=== PATIENT | female | born 1945 | race Caucasian/White ===

== ENCOUNTER → 2017-06-27 09:13 | Outpatient (CLI) | payer MEDICARE, OTHER, SELFPAY ==
--- NOTE | 2017-06-27 09:20 | RAD_ITS ---
STUDY: X-RAY - LEFT HAND, ATTENTION FIRST FINGER REASON FOR EXAM: Female, 72 years old. Chronic thumb pain TECHNIQUE: 3 view(s) of the finger were obtained. COMPARISON: None. FINDINGS: The bones are osteopenic. There are mild arthritic changes of the first interphalangeal joint and first metacarpal greater multangular joint. There is no evidence of fracture or dislocation. The soft tissues are unremarkable. RAD/Finger(s) Min 2 Views IMPRESSION: Degenerative changes of the first interphalangeal joint and first metacarpal greater multangular joint. Generalized osteopenia. Electronically Signed: Ruben Peterson MD at 21:39 EST , Service support ,
== END ==
PROVIDERS: Family Provider Internal Medicine; PCP Internal Medicine; Visit Provider Internal Medicine
DX: M79.645 Pain in left finger(s) (principal)
CPT/HCPCS: 73140

== ENCOUNTER → 2017-09-12 07:22 | Outpatient (CLI) | payer MEDICARE, OTHER, SELFPAY ==
[2017-09-12 08:24] LABS: ALB/GLOB Ratio 1.2 RATIO (0.9-2.4); AST(SGOT) 18 U/L (15-37); Alanine Aminotransfer ALT/SGPT 26 U/L (13-56); Albumin, Serum 4.1 g/dL (3.2-5.0); Alkaline Phosphatase 44 U/L (45-117); Anion Gap 7 (5-15); BUN 26 mg/dL (7-18); Chloride 104 mmol/L (98-107); Creatinine, Serum 0.81 mg/dL (0.55-1.02); EST Glomerular Filtration Rate 74 mL/min (>60); Est Glom Filt Rate - Afr Amer 90 mL/min (>60); Globulin 3.4 g/dL (2.2-4.2); Glucose 88 mg/dL (74-106); Potassium 4.1 mmol/L (3.5-5.1); Protein, Total 7.5 g/dL (6.4-8.2); Sodium Level 140 mmol/L (136-145); Thyroid Stim Hormone (TSH) 1.55 uIU/mL (0.358-3.74)
== END ==
PROVIDERS: Family Provider Internal Medicine; PCP Internal Medicine; Visit Provider Internal Medicine Endocrinology, Diabetes & Metabolism
DX: E04.2 Nontoxic multinodular goiter (principal)
CPT/HCPCS: 36415; 80053; 84443

== ENCOUNTER → 2018-03-15 06:04 | Outpatient (CLI) | payer MEDICARE, OTHER, SELFPAY ==
[2018-03-15 07:31] LABS: AST(SGOT) 20 U/L (15-37); Alanine Aminotransfer ALT/SGPT 25 U/L (13-56); Albumin, Serum 3.8 g/dL (3.2-5.0); Alkaline Phosphatase 56 U/L (45-117); Anion Gap 4 (5-15); BUN 25 mg/dL (7-18); BUN/Creat Ratio 28.5 RATIO (10-20); Chloride 107 mmol/L (98-107); Creatinine, Serum 0.88 mg/dL (0.55-1.02); EST Glomerular Filtration Rate 68 mL/min (>60); Est Glom Filt Rate - Afr Amer 82 mL/min (>60); Globulin 3.8 g/dL (2.2-4.2); Glucose 86 mg/dL (74-106); Potassium 3.9 mmol/L (3.5-5.1); Protein, Total 7.6 g/dL (6.4-8.2); Sodium Level 141 mmol/L (136-145); Thyroid Stim Hormone (TSH) 2.43 uIU/mL (0.358-3.74)
[2018-03-15 08:14] LABS: Vitamin D,25 Hydroxy 56.4 ng/mL (29.95-100.01)
== END ==
PROVIDERS: Family Provider Internal Medicine; PCP Internal Medicine; Referring Provider Internal Medicine Endocrinology, Diabetes & Metabolism; Visit Provider Internal Medicine Endocrinology, Diabetes & Metabolism
DX: E04.2 Nontoxic multinodular goiter (principal); E55.9 Vitamin D deficiency, unspecified
CPT/HCPCS: 36415; 80053; 82306; 84443

== ENCOUNTER → 2018-08-29 05:53 | Outpatient (CLI) | payer MEDICARE, OTHER, SELFPAY ==
[2018-08-29 08:10] LABS: ALB/GLOB Ratio 1.1 RATIO (0.9-2.4); AST(SGOT) 21 U/L (15-37); Alanine Aminotransfer ALT/SGPT 26 U/L (13-56); Albumin, Serum 4.1 g/dL (3.2-5.0); Alkaline Phosphatase 52 U/L (45-117); Anion Gap 7 (5-15); BUN 21 mg/dL (7-18); BUN/Creat Ratio 22.3 RATIO (10-20); Calcium,Total 9.7 mg/dL (8.5-10.1); Chloride 105 mmol/L (98-107); Creatinine, Serum 0.94 mg/dL (0.55-1.02); EST Glomerular Filtration Rate 62 mL/min (>60); Est Glom Filt Rate - Afr Amer 75 mL/min (>60); Globulin 3.7 g/dL (2.2-4.2); Glucose 93 mg/dL (74-106); Potassium 4.1 mmol/L (3.5-5.1); Protein, Total 7.8 g/dL (6.4-8.2); Sodium Level 141 mmol/L (136-145)
== END ==
PROVIDERS: Family Provider Internal Medicine; PCP Internal Medicine; Referring Provider Internal Medicine Endocrinology, Diabetes & Metabolism; Visit Provider Internal Medicine Endocrinology, Diabetes & Metabolism
DX: E04.2 Nontoxic multinodular goiter (principal)
CPT/HCPCS: 36415; 80053; 84443

== ENCOUNTER → 2019-01-20 15:33 | Outpatient (CLI) | payer MEDICARE, OTHER, SELFPAY ==
--- NOTE | 2019-01-20 15:38 | RAD_ITS ---
STUDY: X-RAY - CERVICAL SPINE REASON FOR EXAM: Female, 73 years old. Left-sided neck pain radiating down shoulder TECHNIQUE: 5 view(s) of the cervical spine were obtained. COMPARISON: None FINDINGS: Normal alignment. Prevertebral soft tissues are normal. Degenerative disc disease at the C4-5, C5-6, and C6-7 levels. Mild bilateral foraminal stenosis at the C4-5 and C5-6 levels. Base of dens is intact. No fractures or osteolytic lesions. Carotid calcifications. RAD/Cerv Spine 4 or 5 Views IMPRESSION: Multilevel degenerative disease as described. Electronically Signed: Bryan Jones MD at 16:28 EDT Tel , Service support ,
== END ==
PROVIDERS: Family Provider Internal Medicine; PCP Internal Medicine; Referring Provider Chiropractor; Visit Provider Chiropractor
DX: M99.01 Segmental and somatic dysfunction of cervical region (principal); M50.320 Other cervical disc degeneration, mid-cervical region, unspecified level; M99.03 Segmental and somatic dysfunction of lumbar region; M51.36 Other intervertebral disc degeneration, lumbar region; M99.05 Segmental and somatic dysfunction of pelvic region; M51.37 Other intervertebral disc degeneration, lumbosacral region; M99.02 Segmental and somatic dysfunction of thoracic region
CPT/HCPCS: 72050

== ENCOUNTER 2019-01-24 07:00 | Outpatient (RCR) | payer MEDICARE, OTHER, SELFPAY ==
--- NOTE | 2019-01-15 10:07 | HP.PTEVAL ---
Patient's Visit Information JOSE M GUILLORY is a 73 year old F referred to Physical Therapy by Hope Palencia DO with a diagnosis of CERVICAL RADICULOPATHY,MUSCLE SPASMS. Date of Evaluation: 01/15/19 Physical Therapist: Mark Norris, PT, Cert MDT, OCS - Visit Plan Frequency: 2x /Week Duration: 3 Weeks Plan: PT INTERVENTIONS MANUAL THERAPY STM/CERVICL TRACTION,CERVICAL POSTURAL EX'S.MODALTIES - Subjective Findings: This 73 y/o female presenst to physical therapy cervical radiculopathy. Patient has had pain right UT which has been chronic . Patient had episodes of sprain cervical spine and twisting neck getting out of care. Patient sees chiropractor with TENS and traction. Patient denies parathesia/tingling . Denies nuasea/CHENG/ tinnutus. Patient able to sleep good . Pateint seen DR Palencia. Patient cervical pain affects housework tasks and ADLS . Patient condtion affects QOL. VOCATION: retired. SOCIAL: - Pain Left Neck Pain Intensity (Out of 10): 8 Pain Intensity Range: 10 - Objective POSTURE: mild foward posture. NEURO: intact denies reflexes C-5-6-7 2/3. PALAPTION: left UT ,levator left. AROM: WFL. CERVICAL ROM: flexion min loss ,extension min loss,lateral flexion/rotation mod loss,retraction min loss - Special Tests C/S Radiculapathy - Left Upper limb tension test: Negative C/S Radiculapathy - Right Upper limb tension test: Negative C/S Radiculapathy - Left Spurlings: Positive C/S Radiculapathy - Right Spurlings: Negative C/S Radiculapathy - Left Cervical distraction: Negative C/S Radiculapathy - Right Cervical distraction: Negative Sharp Jake: Negative Vertebral Artery Test: Negative Alar Ligament Test: Negative - Goals Goal 1:: Independant with HEP Goal Time Frame: 2-4 Weeks Goal 2:: Patient to decrease pain by 50% or greater to improve function with ADL'S Goal Time Frame: 2-4 Weeks Goal 3:: Patient to improve cervical ROM for function of recovery Goal Time Frame: 2-4 Weeks Goal 4:: Patient improve neck owestry score by 5 points > to improve QOL Goal Time Frame: 2-4 Weeks Goal 5:: Patient improve function with min limiations Goal Time Frame: 2-4 Weeks - Rehabilitation Potential Physical Therapy Diagnosis: This patient has cervical pain left side with muscle spasms with decrease ROM cervical spine,spasms impairs ADLS' and function with housework tasks. Rehabilitation Potential: Good - Anticipated Interventions Patient/Client Instruction: Educate patient on: Condition, Plan of Care For the Purpose of:: To decrease pain, To increase ROM, To improve ability to perform ADL's, To increase tolerance to activity/condition/position, To improve performance and independence with ADL's, To improve ability of physical actions for home/community/work/leisure, To improve health of tissue, To decrease soft tissue restriction, To increase flexibility/ROM, To improve ability to perform tasks related to life management Therapeutic Exercise to Include: Strength training, Postural training, Flexibilty training, Active ROM For the Purpose of:: To increase ROM, To improve muscle performance and motor function, To improve ability to perform ADL's, To increase tolerance to activity/condition/position, To improve ability of physical actions for home/community/work/leisure, To improve health of tissue, To decrease soft tissue restriction, To increase flexibility/ROM, To improve ability to perform tasks related to life management Manual Therapy Techniques to Include: Mobilization, Soft tissue mobilization For the Purpose of:: To decrease pain, To increase ROM, To improve nutrient delivery to tissue, To increase oxygenation perfusion, To improve health of tissue, To decrease soft tissue restriction TENS: Yes IF ES: Yes Cryotherapy (ice pack, ice massage): Yes Thermo therapy (hot pack): Yes Ultrasound (thermal/non thermal): Yes Intermittent cervical traction: Yes For the Purpose of:: To decrease pain, To increase ROM, To improve nutrient delivery to tissue, To increase oxygenation perfusion, To improve health of tissue, To decrease soft tissue restriction Thank you for the opportunity to evaluate your patient. For Medicare and Medicare HMO plans, please review the plan of care and approve it. It will need to be FAXED BACK to us at [phone] for Medicare purposes. For Medicare only, by signing this I certify the plan of care. Please let me know if there are questions or concerns regarding this plan of care. Physician Signature: Date:
--- NOTE | 2019-01-24 07:39 | HP.PTDCSUM ---
HP - PT D/C Summary It has been my pleasure to treat JOSE M GUILLORY under orders from Hope Palencia DO, for the diagnosis of CERVICAL RADICULOPATHY,MUSCLE SPASMS for a total of 5 visit(s). Discharge Date: 01/24/19 Please see the following information for a summary of their discharge status. - Subjective Subjective: Doing good.. No problems.. Doing ADL'S - Pain Left Neck Pain Intensity (Out of 10): 1 - Overall Improvement % Improvement: 90 - Objective Objective/Function: POSTURE: WFL. PALAPTION: levator scapular. AROM: WFL. MMT: 4/5. CERVICAL ROM: flexion min loss,lateral flexion/rotation mod/min loss,ext. mod loss - Goals Goal 1:: Independant with HEP Goal Progress: Goal Met Goal 2:: Patient to decrease pain by 50% or greater to improve function with ADL'S Goal Progress: Goal Met Goal 3:: Patient to improve cervical ROM for function of recovery Goal Progress: Goal Met Goal 4:: Patient improve neck owestry score by 5 points > to improve QOL Goal Progress: Goal Met Goal 5:: Patient improve function with min limiations Goal Progress: Goal Met - Plan Plan: d/c - D/C Information If there are questions or concerns regarding this patient's physical therapy, please feel free to call me at [phone]. Thank you for the referral of this patient. Sincerely, Mark Norris, PT, Cert MDT, OCS
== END 2019-01-24 19:00 | disposition home or self-care (01) ==
LOC: PT 07:00
PROVIDERS: Family Provider Internal Medicine; PCP Internal Medicine; Referring Provider Internal Medicine; Visit Provider Internal Medicine
DX: M54.12 Radiculopathy, cervical region (principal); M62.838 Other muscle spasm
CPT/HCPCS: 97035; 97116; 97140; 97162

== ENCOUNTER → 2019-04-15 06:01 | Outpatient (CLI) | payer MEDICARE, OTHER, SELFPAY ==
[2019-04-15 07:16] LABS: ALB/GLOB Ratio 1.1 RATIO (0.9-2.4); AST(SGOT) 22 U/L (15-37); Alanine Aminotransfer ALT/SGPT 30 U/L (13-56); Albumin, Serum 3.9 g/dL (3.2-5.0); Alkaline Phosphatase 50 U/L (45-117); Anion Gap 5 (5-15); BUN 22 mg/dL (7-18); BUN/Creat Ratio 23.2 RATIO (10-20); Calcium,Total 9.4 mg/dL (8.5-10.1); Chloride 105 mmol/L (98-107); Creatinine, Serum 0.95 mg/dL (0.55-1.02); EST Glomerular Filtration Rate 62 mL/min (>60); Est Glom Filt Rate - Afr Amer 75 mL/min (>60); Globulin 3.6 g/dL (2.2-4.2); Glucose 93 mg/dL (74-106); Potassium 3.8 mmol/L (3.5-5.1); Protein, Total 7.5 g/dL (6.4-8.2); Sodium Level 139 mmol/L (136-145); Thyroid Stim Hormone (TSH) 2.22 uIU/mL (0.358-3.74)
== END ==
PROVIDERS: Family Provider Internal Medicine; PCP Internal Medicine; Referring Provider Internal Medicine Endocrinology, Diabetes & Metabolism; Visit Provider Internal Medicine Endocrinology, Diabetes & Metabolism
DX: E04.2 Nontoxic multinodular goiter (principal)
CPT/HCPCS: 36415; 80053; 84443

== ENCOUNTER → 2019-11-11 05:59 | Outpatient (CLI) | payer MEDICARE, OTHER, SELFPAY ==
[2019-11-11 08:04] LABS: AST(SGOT) 18 U/L (15-37); Alanine Aminotransfer ALT/SGPT 24 U/L (13-56); Alkaline Phosphatase 52 U/L (45-117); Anion Gap 6 (5-15); BUN 23 mg/dL (7-18); BUN/Creat Ratio 25.6 RATIO (10-20); Calcium,Total 9.6 mg/dL (8.5-10.1); Chloride 103 mmol/L (98-107); EST Glomerular Filtration Rate 65 mL/min (>60); Est Glom Filt Rate - Afr Amer 79 mL/min (>60); Globulin 3.9 g/dL (2.2-4.2); Glucose 95 mg/dL (74-106); Potassium 3.9 mmol/L (3.5-5.1); Protein, Total 7.9 g/dL (6.4-8.2); Sodium Level 139 mmol/L (136-145); Thyroid Stim Hormone (TSH) 2.06 uIU/mL (0.358-3.74)
== END ==
PROVIDERS: PCP Internal Medicine; Referring Provider Internal Medicine Endocrinology, Diabetes & Metabolism; Visit Provider Internal Medicine Endocrinology, Diabetes & Metabolism
DX: E04.2 Nontoxic multinodular goiter (principal)
CPT/HCPCS: 36415; 80053; 84443